=== PATIENT | female | born 1935 | race Caucasian/White ===

== ENCOUNTER 2018-12-22 13:30 | Inpatient (IN) | payer BC, MEDICARE ==
[2019-01-05] MEDS ORDERED: METOCLOPRAMIDE 10 MG TABLET PO ONE (06:00)
[2019-01-05] MEDS ORDERED: MECLIZINE 25 MG TABLET PO ONE (06:00)
[2019-01-05] MEDS ORDERED: FAMOTIDINE 20MG TABLET PO ONE (06:00)
[2019-01-05] MEDS ORDERED: CELECOXIB 100 MG CAPSULE PO ONE (06:00)
[2019-01-05] MEDS ORDERED: VANCOMYCIN HCL 1,000 MG in DEXTROSE 5 % IN WATER 250 ML IVPB ONE ×2 (06:00)
[2019-01-05 12:47] LABS: ABO GROUP O
[2019-01-05 12:48] LABS: ANTIBODY SCREEN NEGATIVE (NEGATIVE); RH TYPE POSITIVE
[2019-01-05] MEDS ORDERED: HYDROCODONE/APAP 10/325 TABLET PO PRN ×2 (16:07)
[2019-01-05] MEDS ORDERED: KETOROLAC 30 MG/ML VIAL IVP PRN ×2 (16:07)
[2019-01-05] MEDS ORDERED: NALOXONE 0.4 MG/1 ML VIAL IVP PRN (16:07)
[2019-01-05] MEDS ORDERED: DIPHENHYDRAMINE HCL 25 MG CAPSULE PO PRN (16:07)
[2019-01-05] MEDS ORDERED: MAGNESIUM HYDROXIDE 30 ML UDC PO PRN (16:07)
[2019-01-05] MEDS ORDERED: BISACODYL 10 MG SUPP RC PRN (16:07)
[2019-01-05] MEDS ORDERED: ZOLPIDEM TARTRATE 5 MG TABLET PO PRN (16:07)
[2019-01-05] MEDS ORDERED: TRAMADOL HCL 50 MG TABLET PO PRN (16:07)
[2019-01-05] MEDS ORDERED: ONDANSETRON HCL IV 4 MG/2 ML VIAL IVP PRN (16:07)
[2019-01-05] MEDS ORDERED: HYDROMORPHONE HCL 2 MG/ML VIAL IM PRN (16:07)
[2019-01-05] MEDS ORDERED: AL HYDROX/MAG HYDROX 30ML UD PO PRN (16:07)
[2019-01-05] MEDS ORDERED: ACETAMINOPHEN 325 MG TAB PO PRN (16:07)
[2019-01-05] MEDS ORDERED: ACETAMINOPHEN W/ CODEINE 300MG/60MG TABLET PO PRN ×2 (16:07)
[2019-01-05] MEDS ORDERED: SIMVASTATIN 20 MG TABLET PO SCH (22:00)
[2019-01-05] MEDS: DOCUSATE SODIUM 100 MG CAPSULE PO SCH (22:31)
[2019-01-05] MEDS: POTASSIUM CHLORIDE/D5-0.9%NACL 20 MEQ/1,000 ML BAG IV SCH (22:31)
[2019-01-06] MEDS: VANCOMYCIN HCL 1,000 MG in DEXTROSE 5 % IN WATER 250 ML IVPB SCH ×4 (01:26→13:06)
[2019-01-06] MEDS: POTASSIUM CHLORIDE/D5-0.9%NACL 20 MEQ/1,000 ML BAG IV SCH ×2 (01:30→10:34)
[2019-01-06] MEDS ORDERED: LEVOTHYROXINE SODIUM 50 MCG TABLET PO SCH (07:00)
[2019-01-06 07:16] LABS: HEMATOCRIT 34.3 % (35.0-47.0); HEMOGLOBIN 10.9 gm/dl (11.6-16.0)
[2019-01-06 07:29] LABS: BLOOD UREA NITROGEN 12 mg/dL (8-23); CREATININE 0.7 mg/dL (0.5-0.9); EST GLOMERULAR FILTRATION RATE > 60 mL/min; GLUCOSE,RANDOM 143 mg/dL (74-109)
[2019-01-06] MEDS ORDERED: MULTIVITAMINS/MINERALS TABLET PO SCH (10:00)
[2019-01-06] MEDS ORDERED: ASCORBIC ACID 500 MG TAB PO SCH (10:00)
[2019-01-06] MEDS ORDERED: FERROUS SULFATE 325 MG TAB PO SCH (10:00)
[2019-01-06] MEDS ORDERED: RIVAROXABAN 10 MG TABLET PO SCH (10:00)
[2019-01-06] MEDS: DOCUSATE SODIUM 100 MG CAPSULE PO SCH (10:37)
--- NOTE | 2019-01-06 10:38 | Rehab Evaluation ---
Patient Information - Patient Information Diagnosis: DJD left hip Ordered Treatment: OT Evaluate and Treat Status: Initial Evaluation Surgery: Yes (total hip replacement) Date of Surgery: 01/05/19 Past Medical/Surgical Hx: PAST MEDICAL/SURGICAL HISTORY Past Surgical History RTHA HIATEL HERNIA REPAIR C SCOPES CATARACTS PMH - Respiratory Hx Respiratory Disorders Yes Hx Asthma Yes: HX OF ON NO INHALERS AT THIS TIME Hx Bronchitis Yes: A LONG TIME AGO Hx Dyspnea Yes: AT TIMES Hx of SOB Yes: WITH EXERTION AT TIMES SEEING ASSOCIATE HAD PFT FU IN JANUARY PMH - Cardiovascular Hx Cardiovascular Disorders Yes Exercise Tolerance Good Comment: HYPERLIPIDEMIA PMH - Neuro Hx Neurological Disorders Yes Hx Neuropathy Yes: HANDS AND FEET PMH - GI Hx Gastrointestinal Disorders Yes Hx Hiatal Hernia Yes: HX OF HAD REPAIR PMH - Hx Genitourinary Disorders No PMH - Endocrine Hx Endocrine Disorders Yes Hx Thyroid Disease Yes: HYPO ON MEDS PMH - Musculoskeletal Hx Musculoskeletal Disorders Yes Hx Arthritis Yes: HANDS AND LEFT HIP PMH - Psych Hx Psychiatric Problems No PMH - Hematology/Oncology Hx Hematology/Oncology No Disorders Premorbid Status: Detail (Pt lives with spouse in a 2 story house, she stays on the main level. She does not have any steps at the entrance but she does have a high threshold. She has a walk in shower with a seat, no grab bars and an elevated toilet, no grab bars. She is responsible for light home mgmt, meal prep and laundry tasks. She has a ammonia refrigeration technician 1 x per week. She has a 2 wheeled walker, crutches and multiple canes, a financial analysis advisor, long shoe horn and long bath sponge.) Social History: Detail (She reports her daughter will be staying with her temporarily.) Precautions: [place], Fall, Other (total hip precautions) - Time With Patient Total Time Spent With Patient (Min): 40 Treatment Procedures: Detail (OT eval low complexity) Subjective Information - Subjective Information Per Patient Objective Data - Pain Pain Present: Yes (12/13) - Mental Status Patient Orientation: Oriented x3 - Visual Perception Appears within normal limits for therapeutic activities - ROM Within normal limits (Cosme UE AROM WNL) - Strength/Tone Within normal limits (Cosme UE strength WNL) - Coordination Appears within normal limits for therapeutic activities - Bed Mobility Independent (Ind with supine to sit) - Transfers Independent (Ind with sit to stand from commode and chair heights.) - Balance Balance Sitting: Good Balance Standing: Good - Sensation Intact - Gait Detail (Pt ambulating in room with 2 wheeled walker Indly.) - ADL's/IADL's Detail (Pt educated and able to demostrate learning of modified LE dressing techniques using financial analysis advisor while maintaining total hip precautions. She was Ind with doffing slipper socks, donning pants and slip on shoes using financial analysis advisor as well as Ind with toileting using commode. Reviewed kitchen and shower safety and modifications, pt verbalizes understanding.) Therapy Assessment - Therapy Assessment Detail (Pt is Ind with use of financial analysis advisor for modified LE dressing techniques while maintaining total hip precautions.) Problem List - Problem List Occupational Therapy Problem List: Detail (No current IP OT problems identified. ) Goals - Goals Occupational Therapy Goals: No current IP OT goals identified. Prognosis - Prognosis Good Plan - Plan Occupational Therapy Plan: No further IP OT recommended. Thank you for this referral.
--- NOTE | 2019-01-06 10:52 | Rehab Evaluation ---
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 FU IN JANUARY PMH - Cardiovascular Hx Cardiovascular Disorders Yes Exercise Tolerance Good Comment: HYPERLIPIDEMIA PMH - Neuro Hx Neurological Disorders Yes Hx Neuropathy Yes: HANDS AND FEET PMH - GI Hx Gastrointestinal Disorders Yes Hx Hiatal Hernia Yes: HX OF HAD REPAIR PMH - Hx Genitourinary Disorders No PMH - Endocrine Hx Endocrine Disorders Yes Hx Thyroid Disease Yes: HYPO ON MEDS PMH - Musculoskeletal Hx Musculoskeletal Disorders Yes Hx Arthritis Yes: HANDS AND LEFT HIP PMH - Psych Hx Psychiatric Problems No PMH - Hematology/Oncology Hx Hematology/Oncology No Disorders Premorbid Status: Detail (Pt lives with spouse in a 2 story house, she stays on the main level. She does not have any steps at the entrance but she does have a high threshold. She has a walk in shower with a seat, no grab bars and an elevated toilet, no grab bars. She is responsible for light home mgmt, meal prep and laundry tasks. She has a inspector packer glass container 1 x per week. She has a 2 wheeled walker, crutches and multiple canes, a hammer adjuster, long shoe horn and long bath sponge.) Social History: Detail (She reports her daughter will be staying with her temporarily.) Precautions: [place], Fall, Other (total hip precautions) - Time With Patient Total Time Spent With Patient (Min): 30 Treatment Procedures: Detail (Initial Evaluation, gait training) Subjective Information - Subjective Information Per Patient (The patient had no complaints of hip pain except when completing hip abduction supine.) Objective Data - Mental Status Patient Orientation: Oriented x3 - Visual Perception Appears within normal limits for therapeutic activities - ROM Not within normal limits (The patient's L hip AROM is within THR precautions. All other LE AROM is WNL.) - Strength/Tone Not within normal limits (The patient's L LE strength was not tested s/p surgery however was functionally patient presented with hip muscular weakness ie : unable to lift L LE into bed . Patient was able to complete hip abduction supine with PT's hand under heel only. Ankle and knee strength were WFL.The patient's R LE strength was WFL.) - Bed Mobility Independent (The patient was indpendent with sit to supine transfer with use of strap to lift L LE. The patient stated she will use a cane at home.) - Transfers Independent (The patient was independent with sit to and from stand transfer.) - Balance Balance Sitting: Good Balance Standing: Good - Gait Detail (The patient ambulated with 2 wheeled walker a distance of 208 feet x 1 WBAT on L LE independently. The patient declined stair climbing (patient has no stairs at home) but was able to verbalize proper stair climbing technique.) Therapy Assessment - Therapy Assessment Detail (The patient was independent with ambulation and transfers and was able to complete sit to supine independently with use of strap. The patient has met all inpatient goals and is discharged from inpatient PT. Patient is to receive Home PT.) Patient Education - Patient Education Teaching Topic: Exercise/Activity (The patient completed THR HEP including: ankle pumps, quad sets, gluteal sets, hamstring sets, heel slides and hip abduction supine ( with PT's hand under patient's heel to reduce friction of bed surface.), Precautions (The patient demonstrated good understanding and use suring mobility of posterior approach THR precautions.) Response: Return Demonstration Teaching Method: Discussion, Handout Teaching Recipient: Patient Barriers To Learning: Age Related Problem List - Problem List Physical Therapy Problem List: Detail (1) Decreased L LE strength 2) Impaired ambulation as to be expected s/p surgery) Occupational Therapy Problem List: Detail (No current IP OT problems identified. ) Goals - Goals Physical Therapy Goals: The patient has met all inpatient PT goals and is discharged from inpatient PT Occupational Therapy Goals: No current IP OT goals identified. Prognosis - Prognosis Good Plan - Plan Physical Therapy Plan: The patient is discharged from inpatient PT and is to receive Home PT. Occupational Therapy Plan: No further IP OT recommended. Thank you for this referral.
--- NOTE | 2019-01-06 12:24 | Operative Note ---
DATE OF SURGERY: 01/05/2019 PREOPERATIVE DIAGNOSIS: End-stage arthrosis of the left hip. POSTOPERATIVE DIAGNOSIS: End-stage arthrosis of the left hip. OPERATION: Cementless left total hip arthroplasty using Ari[employer] Nephew components with a size 54 no-hole Reflection cup, 32 mm diameter 35-degree offset liner, a size 11 [place] stem with a +4 32 mm diameter cobalt chrome head. Staff Surgeon: Rajesh Pickett MD Anesthesia: Spinal. PREPARATION: Chloraprep. INDIVIDUAL CONSIDERATIONS: None. PROCEDURE: The patient was taken to the operating room, placed supine on the operating room table. She had a successful induction of spinal anesthetic. She was then placed on her side left side up and her left leg and hip were prepped and draped in the usual fashion. The patient had direct posterior approach to the hip. Sharp dissection carried down through skin and subcutaneous tissues. Small veins were coagulated with a Bovie. The tensor gluteal fascia was opened along the entire length of the incision, and deep retractors were placed. Short external rotators were identified, piriformis fossa removed exposing the posterior capsule. Posterior capsulectomy was performed. Hip was dislocated posteriorly. The patient had obvious deformity of the head with flattening and osteophytes. A femoral neck cut was made about a fingerbreadth above the lesser troch. A rim capsulectomy was then performed. Ligamentum was debrided with a Bovie. Starting with a 45 mm reamer to medialize, I went to the medial wall and then reamed to the introitus, a 53 for a 54 cup. After thorough irrigation, I impacted a size 54 no-hole Reflection cup in 20 degrees of forward flexion and about 40 degrees of abduction using the extraarticular alignment guide and bony landmarks. There was solid cementless fixation. I placed the center cap screw and then impacted the 32 mm diameter 35-degree offset liner. This gave an excellent stable acetabular construct that put the offset posteriorly-inferiorly. The proximal femur was delivered into the wound, and box cutting osteotome was used to remove the proximal metaphyseal bone. Mid stem reaming was done to a size 11. I started feeling cortex at around 10. Broached to 10, dialed anteversion to about 25 degrees, which is the most I could get since her natural anteversion angle is about 10 degrees. After calcar reaming, I found with a +4 I had stability. I took the trial out, irrigated out completely, and then impacted a size 11 [place] stem with solid calcar contact, solid cementless fixation again with a +4 I had solid stability in full extension, external rotation, and full flexion and even internally rotated at 90 degrees I still had stability. I took the trial off, dried the Jogrito taper, and after irrigation, impacted a size32 cobalt chrome implant. I reduced the hip with similar stability. The sciatic nerve was inspected and found to be completely intact. Hemostasis was obtained with a Bovie. I placed 1 g of tranexamic acid mixed with 30 mL of saline deep to the fascia and then closed the fascia with a running #2 quill. Subcu was closed in layers with running 0 quill, skin was closed with ketan. Prior to closure, I did infiltrate the skin and subcutaneous tissue with 30 mL of 0.5% Marcaine with epinephrine. Sterile bulky compressive SILVIA-type type dressing was applied. The patient tolerated the procedure well. Needle and sponge counts were correct. Estimated blood loss was minimal. He was taken back to recovery in good condition. There were no complications. ENEDINA
[2019-01-06] MEDS ORDERED: TRANEXAMIC ACID 1,000 MG/10 ML ML IV ONE (15:48)
[2019-01-06] MEDS ORDERED: BUPIVACAINE 0.5% W/EPI MPF 30 ML VIAL IVP ONE (15:48)
[2019-01-06] MEDS ORDERED: GENTAMICIN SULFATE 40 MG/ML VIAL IV ONE (15:48)
[2019-01-06] MEDS ORDERED: EPHEDRINE SULFATE 50 MG/ML ML IV ONE (16:39)
[2019-01-06] MEDS ORDERED: LIDOCAINE 2% MDV (20MG/ML) 20ML VIAL IV ONE (16:39)
[2019-01-06] MEDS ORDERED: PROPOFOL 10 MG/ML VIAL IV ONE (16:39)
[2019-01-06] MEDS ORDERED: FENTANYL PF 100MCG/2ML VIAL IV ONE (16:39)
[2019-01-06] MEDS ORDERED: PHENYLEPHRINE HCL 10 MG/ML VIAL IVP ONE (16:39)
--- NOTE | 2019-01-07 08:50 | Discharge Summary ---
DATE OF ADMISSION: 01/05/2019 DATE OF DISCHARGE: 01/06/2019 DATE OF SURGERY: 01/05/2019 HISTORY: The patient is an extremely delightful 83-year-old female who presents with end-stage arthrosis of her left hip. She was admitted after left total hip arthroplasty. Postoperatively, she did well and her hospital course was unremarkable. She basically did not even take anything for pain. Her discharge hemoglobin was 10.9 and she did not require transfusion. The plan is to discharge her home in the care of her family. Home PT visiting nurse has been arranged. She will be given Xarelto followed by aspirin for DVT prophylaxis. Visiting nurse will remove her sutures in 2 weeks. She will follow up in my office in 4 weeks. She will be given Ultram and Tylenol for pain. FINAL DIAGNOSIS/PRIMARY DIAGNOSIS: End-stage arthrosis of the left hip. SECONDARY DIAGNOSIS: Operative blood loss anemia. OPERATIONS/PROCEDURES: Cementless left total hip arthroplasty. ENEDINA
== END 2019-01-06 16:40 | disposition home or self-care (01) | DRG 470 ==
LOC: MEDSURG 01-05 11:53
PROVIDERS: ADMIT Orthopaedic Surgery; ATTEND Orthopaedic Surgery
PROC: 0SRB06A Replacement of Left Hip Joint with Oxidized Zirconium on Polyethylene Synthetic Substitute, Uncemented, Open Approach (ICD-10-PCS; principal; 2019-01-05 14:00)
DX: M16.12 Unilateral primary osteoarthritis, left hip (principal); E78.00 Pure hypercholesterolemia, unspecified; E03.9 Hypothyroidism, unspecified; J45.909 Unspecified asthma, uncomplicated
CPT/HCPCS: 80048; 85014; 85018; 86850; 86900; 86901; C1776; J1580; J1885; J2370; J2405; J3480; J7060

== ENCOUNTER 2019-06-08 06:51 | Day surgery (SDC) | payer BC, MEDICARE ==
[~2019-06-08 06:51] MED LIST: CELECOXIB 100 MG CAPSULE PO ONE; FAMOTIDINE 20MG TABLET PO ONE; MECLIZINE 25 MG TABLET PO ONE; METOCLOPRAMIDE 10 MG TABLET PO ONE; VANCOMYCIN 1GM/200ML PREMIX 1 GM/200 ML PIGGYBACK IVPB ONE
[2019-06-08] MEDS ORDERED: DEXAMETHASONE 4 MG/ML 1ML VIAL IVP ONE (06:52)
[2019-06-08] MEDS ORDERED: LIDOCAINE 2% MDV (20MG/ML) 20ML VIAL IV ONE (06:52)
[2019-06-08] MEDS ORDERED: MIDAZOLAM HCL 2MG/2ML VIAL IV ONE (06:52)
[2019-06-08] MEDS ORDERED: PROPOFOL 10 MG/ML VIAL IV ONE (06:52)
[2019-06-08] MEDS ORDERED: RINGERS SOLUTION,LACTATED 1,000 ML IV ONE ×2 (07:40→10:23)
[2019-06-08 08:26] LABS: ABO GROUP O; ANTIBODY SCREEN NEGATIVE (NEGATIVE); RH TYPE POSITIVE
[2019-06-08] MEDS ORDERED: TRANEXAMIC ACID 1,000 MG/10 ML ML IV ONE (09:43)
[2019-06-08] MEDS ORDERED: BUPIVACAINE 0.5% W/EPI MPF 30 ML VIAL SQ ONE (09:43)
[2019-06-08] MEDS ORDERED: TRANEXAMIC ACID 1,000 MG/10 ML ML IU ONE (09:43)
[2019-06-08] MEDS ORDERED: ACETAMINOPHEN 325 MG TAB PO PRN (10:50)
[2019-06-08] MEDS ORDERED: BISACODYL 10 MG SUPP RC PRN (10:50)
[2019-06-08] MEDS ORDERED: DIPHENHYDRAMINE HCL 25 MG CAPSULE PO PRN (10:50)
[2019-06-08] MEDS ORDERED: ZOLPIDEM TARTRATE 5 MG TABLET PO PRN (10:50)
[2019-06-08] MEDS ORDERED: ONDANSETRON HCL IV 4 MG/2 ML VIAL IVP PRN (10:50)
[2019-06-08] MEDS ORDERED: TRAMADOL HCL 50 MG TABLET PO PRN (10:50)
[2019-06-08] MEDS ORDERED: HYDROCODONE/APAP 10/325 TABLET PO PRN (10:50)
[2019-06-08] MEDS ORDERED: ACETAMINOPHEN W/ CODEINE 300MG/60MG TABLET PO PRN ×2 (10:50)
[2019-06-08] MEDS ORDERED: KETOROLAC 30 MG/ML VIAL IVP ONE (10:50)
[2019-06-08] MEDS ORDERED: HYDROMORPHONE HCL 2 MG/ML VIAL IM PRN (10:50)
[2019-06-08] MEDS ORDERED: MAGNESIUM HYDROXIDE 30 ML UDC PO PRN (10:50)
[2019-06-08] MEDS ORDERED: NALOXONE 0.4 MG/1 ML VIAL IVP PRN (10:50)
[2019-06-08] MEDS ORDERED: AL HYDROX/MAG HYDROX 30ML UD PO PRN (10:50)
[2019-06-08] MEDS ORDERED: GENTAMICIN SULFATE IV ONE (12:00)
[2019-06-08] MEDS ORDERED: SODIUM CHLORIDE 0.9% IV ONE (12:00)
--- NOTE | 2019-06-08 14:15 | Rehab Evaluation ---
Patient Information - Patient Information Diagnosis: DJD R knee Ordered Treatment: PT Evaluate and Treat Status: Initial Evaluation Surgery: Yes (R TKA) Date of Surgery: 06/08/19 Past Medical/Surgical Hx: PAST MEDICAL/SURGICAL HISTORY Surgery to Affected Area? No Recent Surgery? Past Surgical History RTHA HIATEL HERNIA REPAIR C SCOPES CATARACTS PMH - Respiratory Hx Respiratory Disorders Yes Hx Asthma Yes: HX OF ON NO INHALERS AT THIS TIME Hx Bronchitis Yes: A LONG TIME AGO Hx Dyspnea Yes: AT TIMES Hx of SOB Yes: WITH EXERTION AT TIMES SEEING PU LMONOLOGIST HAD PFT FU IN JANUARY PMH - Cardiovascular Hx Cardiovascular Disorders Yes Exercise Tolerance Good Comment: HYPERLIPIDEMIA PMH - Neuro Hx Neurological Disorders Yes Hx Neuropathy Yes: HANDS AND FEET PMH - GI Hx Gastrointestinal Disorders Yes Hx Hiatal Hernia Yes: HX OF HAD REPAIR PMH - Hx Genitourinary Disorders No PMH - Endocrine Hx Endocrine Disorders Yes Hx Thyroid Disease Yes: HYPO ON MEDS PMH - Musculoskeletal Hx Musculoskeletal Disorders Yes Hx Arthritis Yes: HANDS AND LEFT HIP PMH - Psych Hx Psychiatric Problems No PMH - Hematology/Oncology Hx Hematology/Oncology No Disorders Premorbid Status: Detail (The patient was independent with all mobility prior to surgery.) Social History: Detail (The patient lives in a 2 story house with spouse (daughter will be staying for a month) with 1 small step at the enterance with no handrails. The patient will not be using the second floor since her bedroom and bathroom are on the main floor.) Precautions: [employer], Fall, Other (WBAT on the R LE.) - Time With Patient Total Time Spent With Patient (Min): 30 Treatment Procedures: Detail (Initial Evaluation low complexity.) Subjective Information - Subjective Information Per Patient (The patient had no complaints of knee pain however she did complain of abdominal cramping.) Objective Data - Mental Status Patient Orientation: Oriented x3 - ROM Not within normal limits (The patient's R knee AROM was limited s/p surgery. All other LE AROM was WNL.) - Strength/Tone Not within normal limits (The patient's R LE strength was not tested s/p surgery however was functional. The patient's L LE strength was WFL.) - Bed Mobility Needs Assist (The patient required minimal PA (arm pull) with supine to sit. The patient was independent with LE's.) - Transfers Independent (The patient was independent with sit to and from stand transfer.) - Balance Balance Sitting: Good Balance Standing: Good - Gait Detail (The patient ambulated with front wheeled walker WBAT on the R LE a distance of 100 feet x 1 with assist of one to handle IV.) Therapy Assessment - Therapy Assessment Detail (The patient was independent with ambulation and transfers. Feel the patient will progress well with mobility.) Problem List - Problem List Physical Therapy Problem List: Detail (1) Decreased R knee AROM s/p surgery. 2) Decreased R LE strength s/p surgery.) Goals - Goals Physical Therapy Goals: 1) The patient will be independent with bed mobility. 2) The patient will ambulate on stairs using proper technique with supervision for safety. 3) The patient laurie be independent with TKA HEP. Plan - Plan Physical Therapy Plan: PT 1-2 sessions for instruction in HEP and gait training on stairs.
[2019-06-08] MEDS ORDERED: PNEUM 13-VAL/PF 0.5 ML IM ONE (14:56)
[2019-06-08] MEDS: HYDROCODONE/APAP 10/325 TABLET PO PRN (17:16)
[2019-06-08] MEDS: POTASSIUM CHLORIDE/D5-0.9%NACL 20 MEQ/1,000 ML BAG IV SCH ×2 (19:29→22:14)
[2019-06-08] MEDS: VANCOMYCIN 1GM/200ML PREMIX 1 GM/200 ML PIGGYBACK IVPB SCH (19:31)
[2019-06-08] MEDS: DOCUSATE SODIUM 100 MG CAPSULE PO SCH (21:36)
[2019-06-08] MEDS ORDERED: SIMVASTATIN 10MG TABLET PO SCH (22:00)
[2019-06-09] MEDS: HYDROCODONE/APAP 10/325 TABLET PO PRN ×3 (04:23→14:32)
[2019-06-09] MEDS: POTASSIUM CHLORIDE/D5-0.9%NACL 20 MEQ/1,000 ML BAG IV SCH ×2 (05:29→10:58)
[2019-06-09 06:26] LABS: HEMATOCRIT 34.1 % (35.0-47.0); HEMOGLOBIN 10.6 gm/dl (11.6-16.0)
[2019-06-09 06:37] LABS: BLOOD UREA NITROGEN 17 mg/dL (8-23); CREATININE 0.7 mg/dL (0.5-0.9); EST GLOMERULAR FILTRATION RATE > 60 mL/min; GLUCOSE,RANDOM 105 mg/dL (74-109)
[2019-06-09] MEDS ORDERED: LEVOTHYROXINE SODIUM 50 MCG TABLET PO SCH (07:00)
[2019-06-09] MEDS: VANCOMYCIN 1GM/200ML PREMIX 1 GM/200 ML PIGGYBACK IVPB SCH (08:11)
--- NOTE | 2019-06-09 09:58 | Rehab Evaluation ---
Patient Information - Patient Information Diagnosis: DJD R knee Ordered Treatment: OT Evaluate and Treat Status: Initial Evaluation Surgery: Yes (R TKA) Date of Surgery: 06/08/19 Past Medical/Surgical Hx: PAST MEDICAL/SURGICAL HISTORY Surgery to Affected Area? No Recent Surgery? Past Surgical History RTHA HIATEL HERNIA REPAIR C SCOPES CATARACTS PMH - Respiratory Hx Respiratory Disorders Yes Hx Asthma Yes: HX OF ON NO INHALERS AT THIS TIME Hx Bronchitis Yes: A LONG TIME AGO Hx Dyspnea Yes: AT TIMES Hx of SOB Yes: WITH EXERTION AT TIMES SEEING PU LMONOLOGIST HAD PFT FU IN JANUARY PMH - Cardiovascular Hx Cardiovascular Disorders Yes Exercise Tolerance Good Comment: HYPERLIPIDEMIA PMH - Neuro Hx Neurological Disorders Yes Hx Neuropathy Yes: HANDS AND FEET PMH - GI Hx Gastrointestinal Disorders Yes Hx Hiatal Hernia Yes: HX OF HAD REPAIR PMH - Hx Genitourinary Disorders No PMH - Endocrine Hx Endocrine Disorders Yes Hx Thyroid Disease Yes: HYPO ON MEDS PMH - Musculoskeletal Hx Musculoskeletal Disorders Yes Hx Arthritis Yes: HANDS AND LEFT HIP PMH - Psych Hx Psychiatric Problems No PMH - Hematology/Oncology Hx Hematology/Oncology No Disorders Premorbid Status: Detail (The patient was independent with all mobility, meal prep, laundry and home mgmt prior to surgery.) Social History: Detail (The patient lives in a 2 story house with spouse (daughter will be staying for a month) with 1 small step at the entrance with no handrails. The patient will not be using the second floor since her bedroom and bathroom are on the main floor. She has a walk in shower with a seat and an elevated toilet, no grab bars are present in the bathroom. She has a 2 wheeled walker and multiple canes.) Precautions: [place], Fall, Other (WBAT on the R LE.) - Time With Patient Total Time Spent With Patient (Min): 30 Treatment Procedures: Detail (OT eval low complexity) Subjective Information - Subjective Information Per Patient Objective Data - Pain Pain Present: No (Pt reports no pain) - Mental Status Patient Orientation: Oriented x3 - Visual Perception Appears within normal limits for therapeutic activities - ROM Within normal limits (Cosme UE AROM WNL) - Strength/Tone Within normal limits (Cosme UE strength WNL) - Coordination Appears within normal limits for therapeutic activities - Bed Mobility Independent (Ind with supine to sit) - Transfers Independent (Ind with sit to stand from EOB and chair heights.) - Balance Balance Sitting: Good Balance Standing: Good - Sensation Intact - Gait Detail (Pt ambulating in hallway with 2 wheeled walker and SBA) - ADL's/IADL's Detail (Pt educated and able to demonstrate learning of modified LE dressing techniques including doffing slipper socks and briefs and donning jose sock (with assist) and donning underwear, pants and slip on shoes. Pt educated and verbalized understanding of shower and kitchen safety and modifications.) Therapy Assessment - Therapy Assessment Detail (Pt is Ind and safe with modified LE dressing techniques.) Problem List - Problem List Physical Therapy Problem List: Detail (1) Decreased R knee AROM s/p surgery. 2) Decreased R LE strength s/p surgery.) Occupational Therapy Problem List: Detail (No current IP OT problems identified.) Goals - Goals Physical Therapy Goals: 1) The patient will be independent with bed mobility. 2) The patient will ambulate on stairs using proper technique with supervision for safety. 3) The patient laurie be independent with TKA HEP. Occupational Therapy Goals: No current IP OT goals identified. Prognosis - Prognosis Good Plan - Plan Physical Therapy Plan: PT 1-2 sessions for instruction in HEP and gait training on stairs. Occupational Therapy Plan: No further IP OT recommended. Thank you for this referral.
[2019-06-09] MEDS ORDERED: RIVAROXABAN 10 MG TABLET PO SCH (10:00)
[2019-06-09] MEDS ORDERED: FERROUS SULFATE 325 MG TAB PO SCH (10:00)
--- NOTE | 2019-06-09 10:43 | Physical Therapy Tx Note ---
Physical Therapy Tx Note - Treatment Note Tolerated: Good Total Time Spent With Patient: 25 Physical Therapy Tx Note: Detail (The patient was sitting in chair when PT arrived. The patient ambulated with front wheeled walker a distance of 200 feet x 1 WBAT on the R LE independently. The patient ambulated on stairs using proper technique with supervision for safety with use of one railing and folded walker. The patient was independent with supine to and from sit transfer. The patient completed TKA HEP including: seated and supine heel slides, ankle pumps, SLR, quad sets, gluteal sets, hamstring sets. The patient has met all inpatient goals and is discharged from inpatient PT.) Physical Therapy Problem List: Detail (1) Decreased R knee AROM s/p surgery. 2) Decreased R LE strength s/p surgery.) Physical Therapy Goals: 1) The patient will be independent with bed mobility (Goal Met). 2) The patient will ambulate on stairs using proper technique with supervision for safety.(Goal Met). 3) The patient laurie be independent with TKA HEP.(Goal Met) Physical Therapy Plan: PT 1-2 sessions for instruction in HEP and gait training on stairs.
[2019-06-09] MEDS: DOCUSATE SODIUM 100 MG CAPSULE PO SCH (10:56)
--- NOTE | 2019-06-11 12:51 | Operative Note ---
DATE OF SURGERY: 06/08/2019 PREOPERATIVE DIAGNOSIS: End-stage arthrosis of the right knee. POSTOPERATIVE DIAGNOSIS: End-stage arthrosis of the right knee. OPERATION: Cemented right total knee arthroplasty using [employer] II components with a size 5 cobalt chrome femur, a size 4 stemmed tibia baseplate, a 9 mm lipped tibial insert, and a 35 mm all-plastic patella. STAFF SURGEON: Rajesh Pickett MD ANESTHESIA: Spinal. PREPARATION: Chloraprep. INDIVIDUAL CONSIDERATIONS: None. PROCEDURE: The patient was taken to the operating room, placed supine on the operating room table. She had a successful induction of a spinal anesthetic. The right lower extremity was prepped and draped in the usual fashion. The patient had a midline approach to the knee. Sharp dissection carried down through skin and subcutaneous tissue. Small veins were coagulated with a Bovie. A medial arthrotomy was performed. The patella was everted and the knee was flexed. The patient had exposed bone at the medial and patellofemoral compartments. Fat pad was resected, ACL was sacrificed, and provisional anterior meniscectomies were performed. The capsule was released from the medial proximal tibia. The initial femoral marine pilot hole was then made freehand. The intramedullary femoral cutting jig was placed. It was cut in 7.0 degrees of valgus and adjusted for rotation and secured with pins for a 10 mm resection. The initial transverse cut was then made. The skin guide was placed in the anterior and posterior marine pilot holes. It was found that a size 5 would be appropriate. The anterior and posterior cuts followed by chamfer cuts were made. Osteophytes removed, and a size 5 trial was placed and found to fit well. The tibia was brought forward, and the remainder of the meniscal remnants removed with a Bovie. The extraarticular tibial cutting jig was placed. It was cut in neutral with a 3-degree AP slope. Care was taken to adjust for rotation and flexion using the extraarticular alignment guide and bony landmarks. It was set for a 9 mm resection keyed off the high lateral side and secured with pins. When cutting the tibia, care was taken to preserve the PCL insertion on the tibia. Large medial osteophytes were removed, and I was able to fit a size 4 baseplate. It was adjusted for rotation and secured with pins. With a 9 mm trial and femoral trial, there was excellent motion and stability, ligamentous balance, and rotation alignment were normal. Femoral marine pilot holes were impacted and tri-flange tibial stamp was impacted, and these trial components were removed. The patient had a relatively thick patella and roughly 9 mm of bone was removed freehand. I was able to fit a 35 patella, and the 3 marine pilot holes were drilled. The tourniquet was let down briefly to get bleeders posteriorly and then placed back up again. The knee was then thoroughly irrigated out with pulsatile Betadine and saline to remove any visual or palpable debris. Bony surfaces were then dried. A size 4 stemmed tibia baseplate was cemented into place followed by impaction of the 9 mm lipped tibial insert followed by cementing in the size 5 cobalt chrome femur followed by cementing in the 35 mm patella. The implant surfaces were compressed, excess cement was removed. After the cement had set, there was excellent motion and stability, ligamentous balance, rotation alignment, and patellofemoral tracking were normal. No lateral release was required. Tourniquet was let down. Hemostasis was obtained with a Bovie. The periosteum, skin, and subcu were infiltrated with 30 mL of 0.5% Marcaine with epinephrine. The capsule was then closed with a running #2 quill, subcu was closed in layers with running 0 quill, skin was closed with ketan. The patient did receive 1 g of tranexamic acid preoperatively. Then 1 g of tranexamic acid was mixed with 30 mL of saline and injected into the knee through a sterile 18- gauge needle, and a sterile bulky compressive SILVIA-type dressing was applied. The patient tolerated the procedure well. Needle and sponge counts were correct. Estimated blood loss was minimal, and she was taken back to recovery in good condition. There were no complications. ENEDINA
== END 2019-06-09 14:30 | disposition home health service (06) ==
LOC: SUR 06:51 → MEDSURG 11:26 → SUR 06-09 14:30
PROVIDERS: ATTEND Orthopaedic Surgery
DX: M17.11 Unilateral primary osteoarthritis, right knee (principal); E78.00 Pure hypercholesterolemia, unspecified; E03.9 Hypothyroidism, unspecified; J45.909 Unspecified asthma, uncomplicated
CPT/HCPCS: 27447; 01402; 64447; 85018; 85014; 80048; 86900; 86901; 86850; J3490 ×3; J3370 ×2; 76942; C1776; J1580; J3480; J7120